=== PATIENT | female | born 1945 | race Caucasian/White ===

== ENCOUNTER 2017-04-18 18:56 | Emergency (ER) | payer SELFPAY ==
[2017-04-18] MEDS ORDERED: Ketorolac INJ* 30 MG/ML 1 ML VIAL IM ONE (20:56)
[2017-04-18] MEDS ORDERED: traMADol TAB* 50 MG PO ONE (20:56)
--- NOTE | 2017-04-18 21:37 | RAD ---
INDICATION: Left hip pain TECHNIQUE: An AP view of the pelvis was obtained. FINDINGS: Advanced degenerative changes of the bilateral hips seen in the AP view include sclerotic change with flattening remodeling of the bilateral femoral heads and exuberant marginal osteophyte formation. The bones are otherwise intact and appropriately aligned. Incidentally noted is a gas-filled sigmoid colon measuring just under 7 mm in diameter. There is a large amount of stool seen in the proximal colon at the cecum and ascending colon. Gas and stool is seen overlying the rectum. IMPRESSION: 1. Advanced degenerative changes of the bilateral hips seen in the AP projection. 2. Incidentally noted is mildly dilated gas-filled sigmoid colon measuring just under 7 mm in diameter with a large amount of stool seen in the colon proximally.
[2017-04-18] MEDS ORDERED: Magnesium CITRATE* 300 ML BTL PO ONE (22:18)
[2017-04-18] MEDS ORDERED: Bisacodyl SUPP* 10 MG SUPP PR ONE (22:19)
--- NOTE | 2017-04-18 22:38 | ED ---
Rey Lutz Nikita, scribed for Fifi Barney MD on 04/18/17 at 2050 . Lower Extremity - HPI Summary HPI Summary: This patient is a 71 year old F presenting to ED with a chief complaint of bilateral hip pain since 3 days ago. The CC is described as R is significantly more painful than the L hip. The patient rates the pain 7/10 in severity. Symptoms aggravated by nothing. Symptoms alleviated by nothing. Patient denies recent injury and abdominal pain. Pt is waiting for a hip replacement (1.5 and 3 years ago; both hips). Pt took Ibuprofen 3 hours ago. - History of Current Complaint Chief Complaint: EDExtremityLower Stated Complaint: LEG/HIP/BACK PAIN Time Seen by Provider: 04/18/17 20:22 Hx Obtained From: Patient, Family/Territory Representative - pt does not speak mongolian; daughter translates for the pt Onset of Pain: Days Onset/Duration: Days Severity Initially: Moderate Severity Currently: Moderate Pain Intensity: 7 Pain Scale Used: 0-10 Numeric Timing: Constant, Lasting Days Location: Is Discrete @ - hips bilaterally Associated Signs And Symptoms: Positive: Other - Patient denies recent injury and abdominal pain. Aggravating Factor(s): Nothing Alleviating Factor(s): Nothing - Allergies/Home Medications Allergies/Adverse Reactions: Allergies Allergy/AdvReac Type Severity Reaction Status Date / Time Fentanyl Allergy Nausea And Verified 04/18/17 19:08 Vomiting Lidocaine Allergy Nausea And Verified 04/18/17 19:08 Vomiting PMH/Surg Hx/FS Hx/Imm Hx Endocrine/Hematology History: Denies: Hx Diabetes Cardiovascular History: Denies: Hx Coronary Artery Disease GI History: Reports: Hx Ulcer Musculoskeletal History: Reports: Hx Arthritis, Other Musculoskeletal History - sciatica Infectious Disease History: No Infectious Disease History: Denies: Traveled Outside the [place] in Last 30 Days - Family History Known Family History: Negative: Cardiac Disease, Hypertension Review of Systems Negative: Abdominal Pain Positive: Other - bilateral hip pain; denies recent injury All Other Systems Reviewed And Are Negative: Yes Physical Exam - Summary Physical Exam Summary: VITAL SIGNS: Reviewed. GENERAL: ~Patient is a well-developed and nourished FEMALE who is lying comfortable in the stretcher. Patient is not in any acute respiratory distress. HEAD AND FACE: No signs of trauma. No ecchymosis, hematomas or skull depressions. No sinus tenderness. EYES: PERRLA, EOMI x 2, No injected conjunctiva, no nystagmus. EARS: Hearing grossly intact. Ear canals and tympanic membranes are within normal limits. MOUTH: Oropharynx within normal limits. NECK: Supple, trachea is midline, no adenopathy, no JVD, no carotid bruit, no c- spine tenderness, neck with full ROM. CHEST: Symmetric, no tenderness at palpation LUNGS: Clear to auscultation bilaterally. No wheezing or crackles. CVS: Regular rate and rhythm, S1 and S2 present, no murmurs or gallops appreciated. ABDOMEN: Soft, non-tender. No signs of distention. No rebound no guarding, and no masses palpated. Bowel sounds are normal. EXTREMITIES: Bilateral hip tenderness, bilateral straight leg raise test is positive at 20 degrees, no edema, no cyanosis or clubbing. NEURO: Alert and oriented x 3. No acute neurological deficits. Speech is normal and follows commands. SKIN: Dry and warm Triage Information Reviewed: Yes Vital Signs On Initial Exam: Initial Vitals Temp Pulse Resp BP Pulse Ox 98.5 F 77 16 150/73 93 04/18/17 19:02 04/18/17 19:02 04/18/17 19:02 04/18/17 19:02 04/18/17 19:02 Vital Signs Reviewed: Yes Diagnostics - Vital Signs Vital Signs Temp Pulse Resp BP Pulse Ox 04/18/17 19:02 98.5 F 77 16 150/73 93 - Laboratory Lab Statement: Any lab studies that have been ordered have been reviewed, and results considered in the medical decision making process. - Radiology Pelvis XR Radiology Interpretation Completed By: Radiologist - 1. Advanced degenerative changes of the bilateral hips seen in the AP projection. 2. Incidentally noted is mildly dilated gas-filled sigmoid colon measuring just under 7 mm in diameter with a large amount of stool seen in the colon proximally. ED physician has reviewed this radiology report. Lower Extremity Course/Dx - Course Assessment/Plan: This patient is a 71 year old F presenting to ED with a chief complaint of bilateral hip pain since 3 days ago. The CC is described as R is significantly more painful than the L hip. Pelvis XR reveals 1. Advanced degenerative changes of the bilateral hips seen in the AP projection. 2. Incidentally noted is mildly dilated gas-filled sigmoid colon measuring just under 7 mm in diameter with a large amount of stool seen in the colon proximally. Pt will be discharged with instructions to follow up with Dr. Mclaughlin. Pt is agreeable with this plan. - Diagnoses Differential Diagnosis/HQI/PQRI: Positive: Other - bilateral hip arthritis, constipation Provider Diagnoses: Constipation, Bilateral hip joint arthritis Discharge - Discharge Plan Condition: Stable Disposition: HOME Prescriptions: traMADol TAB* [Ultram*] 50 mg PO Q6HR PRN #20 tab MDD 4 PRN Reason: Pain Referrals: Zana Mclaughlin MD [Medical Doctor] - (Follow up with Dr. Mclaughlin in 1-2 days.) Additional Instructions: BE SURE TO FOLLOW UP WITH DR. MCLAUGHLIN IN 1-2 DAYS. RETURN TO EMERGENCY DEPARTMENT FOR ANY NEW OR WORSENING SYMPTOMS. The documentation as recorded by the Rey damon Nikita accurately reflects the service I personally performed and the decisions made by , Fifi Barney MD.
[2017-04-18 22:54] VITALS: BP 136/89
== END 2017-04-18 22:53 | disposition home or self-care (01) ==
LOC: ED 18:56
DX: K59.00 Constipation, unspecified (principal); M16.0 Bilateral primary osteoarthritis of hip; M25.552 Pain in left hip; M25.551 Pain in right hip; Z87.11 Personal history of peptic ulcer disease
CPT/HCPCS: 72170; 96372; 99282; A9270-GY; J1885

== ENCOUNTER 2019-03-31 15:39 | Emergency (ER) | payer MEDICAID ==
[2019-03-31 16:00] VITALS: BP 139/78
--- NOTE | 2019-03-31 16:02 | UC ---
Skin Complaint HPI - HPI Summary HPI Summary: Patient is a 73yo female presenting with daughter for "itchy scalp and skin" x2 weeks. History obtained by daughter, as the patient speak little pashto. Daughter states that her mother has "possible bed bugs, fleas, or insect infestation." States that itching is worse at night and that she is unable to sleep. Denies current itching. Denies visible rash or bites. Daughter states she believes she has seen fleas in the apartment but has not seen any bed bugs. Patient states she believes she has seen "dark spots" in her hair as well. States they have tried contacting landlord but that he will not get back to them. They have tried flea bombs last week, bed bug sprays, and lice shampoo yesterday. Denies having any pets. - History of Current Complaint Stated Complaint: SCALP, SKIN IRRITATION Hx Obtained From: Patient, Family/Resident Care Supervisor - daughter Hx Last Menstrual Period: post Pain Intensity: 0 - Allergy/Home Medications Allergies/Adverse Reactions: Allergies Allergy/AdvReac Type Severity Reaction Status Date / Time fentanyl Allergy Severe n/v Verified 03/31/19 16:02 lidocaine Allergy Severe n/v Verified 03/31/19 16:02 Home Medications: Home Medications Lisinopril TAB* [Prinivil TAB 5 MG*] 1 tab PO DAILY 03/31/19 [History Confirmed 03/31/19] Omeprazole 1 tab PO DAILY 03/31/19 [History Confirmed 03/31/19] PMH/Surg Hx/FS Hx/Imm Hx Cardiovascular History: Hypertension GI/ History: Gastroesophageal Reflux - Surgical History Surgical History: None - Family History Known Family History: Negative: Cardiac Disease, Hypertension - Social History Occupation: Retired Lives: Alone Alcohol Use: None Substance Use Type: None Smoking Status (MU): Never Smoked Tobacco Review of Systems All Other Systems Reviewed And Are Negative: No Constitutional: Positive: Negative Skin: Positive: Other - pruritic scalp and skin head to toe intermittently. Negative: Rash Respiratory: Positive: Negative Cardiovascular: Positive: Negative Gastrointestinal: Positive: Negative Musculoskeletal: Positive: Negative Neurological: Positive: Negative Physical Exam Triage Information Reviewed: Yes Appearance: Well-Appearing, No Pain Distress, Well-Nourished Vital Signs: Initial Vital Signs Temp 98 F 03/31/19 15:55 Pulse 79 03/31/19 15:55 Resp 18 03/31/19 15:55 BP 139/78 03/31/19 15:55 Pulse Ox 99 03/31/19 15:55 Vital Signs Reviewed: Yes Eyes: Positive: Conjunctiva Clear ENT: Positive: Hearing grossly normal Neck: Positive: Supple Respiratory Exam: Normal Respiratory: Positive: Lungs clear, Normal breath sounds, No respiratory distress Cardiovascular Exam: Normal Cardiovascular: Positive: RRR Neurological: Positive: Alert Psychological: Positive: Age Appropriate Behavior Skin Exam: Normal, Other - no rashes, bite spaulding, or lesions noted on skin exam. scalp without evidence of lice or nits. Skin: Negative: Rashes, Significant Lesion(s) Course/Dx - Course Course Of Treatment: I treated patient with permethrin 5% for treatment of possible lice or scabies exposure. Instructed patient to follow up with dermatology referral if symptoms persist. Patient and daughter were given [facility] contact information after expressing concern that the landlord will not communicate with them on this matter. Patient and daughter voiced understanding and agreed with treatment plan. - Differential Diagnoses - Skin Complaint Differential Diagnoses: Head Lice, Scabies - Diagnoses Provider Diagnosis: Pruritus of skin, Pruritus of scalp Discharge ED - Sign-Out/Discharge Documenting (check all that apply): Patient Departure All imaging exams completed and their final reports reviewed: No Studies - Discharge Plan Condition: Stable Disposition: HOME Prescriptions: Permethrin [Elimite] 5 % EX SEE INSTRUCTIONS #1 cre Patient Education Materials: Itchy Skin (ED) Referrals: Becky Rolle MD [Primary Care Provider] - Curtis Steward MD [Medical Doctor] - If Needed Additional Instructions: Apply the Elimite cream from head to soles of feet, including scalp, forehead, and neck. Leave it on for 8-14 hours and remove with water. If symptoms persist, follow up with the dermatology referral listed below for further evaluation. It is recommended that you contact your landlord or the housing authorities to have your apartment inspected for any infestation. - Billing Disposition and Condition Condition: STABLE Disposition: Home
== END 2019-03-31 16:38 | disposition home or self-care (01) ==
LOC: UCEAST 15:39
DX: L29.9 Pruritus, unspecified (principal); I10 Essential (primary) hypertension; K21.9 Gastro-esophageal reflux disease without esophagitis; Z88.5 Allergy status to narcotic agent; Z88.4 Allergy status to anesthetic agent; Z79.899 Other long term (current) drug therapy
CPT/HCPCS: 99212; G0463

== ENCOUNTER 2019-04-25 21:00 | Inpatient (IN) | payer MEDICAID ==
[2019-04-25] MEDS ORDERED: Diltiazem IV push/loading dose 5 MG/ML 5 ML vial (25 mg) IV SLOW PU ONE (21:49)
[2019-04-25 22:00] LABS: Hematocrit 38 % (35-47); Hemoglobin 12.4 g/dL (12.0-16.0); Mean Corpuscular HGB Conc 33 g/dL (31-36); Mean Corpuscular Hemoglobin 30 pg (27-31); Mean Corpuscular Volume 90 fL (80-97); Mean Platelet Volume 11.8 fL (7.4-10.4); Platelet Count 151 10^3/uL (150-450); Red Blood Count 4.18 10^6 /uL (3.70-4.87); Red Cell Distribution Width 14 % (10-15); White Blood Count 11.1 10^3/uL (3.5-10.8)
[2019-04-25] MEDS: Diltiazem IV BAG* D5W Premix 125 MG/125 ML BAG IV ONE ×2 (22:10→23:24)
[2019-04-25 22:17] LABS: Albumin/Globulin Ratio 1.3 (1-3); BUN/Creatinine Ratio 21.1 (8-20); Calcium 9.5 mg/dL (8.6-10.3); EGFR African American 74.5 (>60); EGFR Non-African American 61.5 (>60); Potassium 3.3 mmol/L (3.5-5.0); Total Bilirubin 0.5 mg/dL (0.2-1.0)
[2019-04-25 22:18] LABS: Troponin I 0.01 ng/mL (<0.03)
--- NOTE | 2019-04-25 22:25 | ED ---
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 She states that her home has fleas and bugs that have created a stressful and uncomfortable environment for her over the past few weeks. She spoke to her landlord about the pest issue but they could not find evidence of an infestation. She rates her current pain severity a 2/10. No aggravating or alleviating factors noted. She also reports feeling week and being unable to get out of bed. She has Hx of tachycardia. - History Of Current Complaint Chief Complaint: EDChestWallPain Time Seen by Provider: 04/25/19 21:31 Hx Obtained From: Patient, Family/Sound Controller - son Onset/Duration: Sudden Onset, Lasting Hours, Still Present Timing: Constant, Hours Severity Currently: Mild Severity Initially: Mild Aggravating Factor(s): nothing Alleviating Factor(s): nothing Associated Signs And Symptoms: Positive: Weakness, Other - pos - hypotension - Allergies/Home Medications Allergies/Adverse Reactions: Allergies Allergy/AdvReac Type Severity Reaction Status Date / Time fentanyl Allergy Severe n/v Verified 04/25/19 21:02 lidocaine Allergy Severe n/v Verified 04/25/19 21:02 PMH/Surg Hx/FS Hx/Imm Hx Endocrine/Hematology History: Denies: Hx Diabetes Cardiovascular History: Reports: Hx Hypertension Denies: Hx Coronary Artery Disease GI History: Reports: Hx Ulcer Musculoskeletal History: Reports: Hx Arthritis, Other Musculoskeletal History - sciatica - Surgical History Surgical History: None Surgery Procedure, Year, and Place: none Infectious Disease History: No Infectious Disease History: Denies: Traveled Outside the [place] in Last 30 Days - Family History Known Family History: Negative: Cardiac Disease, Hypertension - Social History Alcohol Use: None Substance Use Type: Reports: None Smoking Status (MU): Never Smoked Tobacco Review of Systems Cardiovascular: Other - pos - hypotension Positive: Weakness All Other Systems Reviewed And Are Negative: Yes Physical Exam - Summary Physical Exam Summary: Appearance: Well-appearing, Well-nourished, lying in bed comfortably Skin: Warm, dry, no obvious rash Eyes: sclera anicteric, no conjunctival pallor ENT: mucous membranes moist, pharynx appears normal Neck: Supple, nontender Respiratory: Clear to auscultation, no signs of respiratory distress Cardiovascular: HR is rapid (130s range) and irregularly irregular, Normal S1, S2. No murmurs. Normal distal pulses in tibial and radial bilaterally. Abdomen: Soft, nontender, normal active bowel sounds present Musculoskeletal: Normal, Strength/ROM Intact Neurological: A&Ox3, awake and alert, mentation is normal, speech is fluent and appropriate Psychiatric: affect is normal, does not appear anxious or depressed Triage Information Reviewed: Yes Vital Signs On Initial Exam: Initial Vitals Temp Pulse Resp BP Pulse Ox 97.5 F 112 18 87/65 98 04/25/19 21:02 04/25/19 21:02 04/25/19 21:02 04/25/19 21:02 04/25/19 21:02 Vital Signs Reviewed: Yes Procedures - Sedation Patient Received Moderate/Deep Sedation with Procedure: No Diagnostics - Vital Signs Vital Signs Temp Pulse Resp BP Pulse Ox 04/25/19 21:41 95 18 114/79 94 04/25/19 21:02 97.5 F 112 18 87/65 98 - Laboratory Lab Results: Lab Results 04/25/19 04/25/19 04/25/19 Range/Units 21:48 21:48 21:48 WBC 11.1 H (3.5-10.8) 10^3/uL RBC 4.18 (3.70-4.87) 10^6 /uL Hgb 12.4 (12.0-16.0) g/dL Hct 38 (35-47) % MCV 90 (80-97) fL MCH 30 (27-31) pg MCHC 33 (31-36) g/dL RDW 14 (10-15) % Plt Count 151 (150-450) 10^3/uL MPV 11.8 H (7.4-10.4) fL Neut % (Auto) Pending Lymph % (Auto) Pending [place] % (Auto) Pending Eos % (Auto) Pending Baso % (Auto) Pending Absolute Neuts (auto) Pending Absolute Lymphs (auto) Pending Absolute Monos (auto) Pending Absolute Eos (auto) Pending Absolute Basos (auto) Pending Absolute Nucleated RBC Pending Nucleated RBC % Pending INR (Anticoag Therapy) 1.00 (0.82-1.09) Sodium 140 (135-145) mmol/L Potassium 3.3 L (3.5-5.0) mmol/L Chloride 108 (101-111) mmol/L Carbon Dioxide 21 L (22-32) mmol/L Anion Gap 11 (2-11) mmol/L BUN 19 (6-24) mg/dL Creatinine 0.90 (0.51-0.95) mg/dL Est GFR ( Amer) 74.5 (>60) Est GFR (Non-Af Amer) 61.5 (>60) BUN/Creatinine Ratio 21.1 H (8-20) Glucose 109 H (70-100) mg/dL Calcium 9.5 (8.6-10.3) mg/dL Total Bilirubin 0.50 (0.2-1.0) mg/dL AST 17 (13-39) U/L ALT 7 (7-52) U/L Alkaline Phosphatase 68 (34-104) U/L Troponin I 0.01 (<0.03) ng/mL Total Protein 7.0 (6.4-8.9) g/dL Albumin 4.0 (3.2-5.2) g/dL Globulin 3.0 (2-4) g/dL Albumin/Globulin Ratio 1.3 (1-3) Result Diagrams: 04/26/19 05:00 04/25/19 21:48 Lab Statement: Any lab studies that have been ordered have been reviewed, and results considered in the medical decision making process. - EKG 2111 Cardiac Rate: Other Rate - Afib @ 140 bpm EKG Rhythm: Atrial Fibrillation Summary of EKG Findings: EKG @ 2111 reveals Afib @ 140 bpm. No STEMI. 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 She states that her home has fleas and bugs that have created a stressful and uncomfortable environment for her over the past few weeks. Lab results normal except for WBC 11.1, MPV 11.8, Absolute Neuts 9.2, Potassium 3.3, CO2 21, BUN/Creatinine 21.1, Glucose 109. EKG @ 2111 reveals Afib @ 140 bpm. No STEMI. Final Dx is Afib with rapid ventricular response. Dr. Schneider will admit the pt to [facility] [place]. Pt is agreeable with this plan. - Diagnoses Provider Diagnoses: Atrial fibrillation with rapid ventricular response - Physician Notifications Discussed Care Of Patient With: Korina Schneider - Dr. Schneider will admit the pt to [facility] [place]. Time Discussed With Above Provider: 22:30 Instructed by Provider To: Admit As Inpatient - Critical Care Time Critical Care Time: 30-74 min Discharge ED - Sign-Out/Discharge Documenting (check all that apply): Patient Departure - admit - Discharge Plan Condition: Stable Disposition: ADMITTED TO [facility] - Billing Disposition and Condition Condition: STABLE Disposition: Admitted to [facility] - Attestation Statements Document Initiated by Liyah: Yes Documenting Scribe: Lloyd Anna Provider For Whom Liyah is Documenting (Include Credential): Kwan Rondon MD Scribe Attestation: Lloyd Lutz, scribed for Kwan Rondon MD on 04/26/19 at 0505. Scribe Documentation Reviewed: Yes Provider Attestation: The documentation as recorded by the Lloyd damon accurately reflects the service I personally performed and the decisions made by , Kwan Rondon MD Status of Scribe Document: Viewed
[2019-04-25 22:35] LABS: ABS Lymphocytes 1.1 10^3/ul (1.0-4.8); ABS Monocytes 0.8 10^3/ul (0-0.8); ABS Neutrophils 9.2 10^3/ul (1.5-7.7); Eosinophil % 0.2 %; Large Platelets Present; Lymphocyte % 9.8 %
[2019-04-26] MEDS: Diltiazem IV BAG* D5W Premix 125 MG/125 ML BAG IV ONE (00:12)
[2019-04-26 00:41] LABS: HDL Cholesterol 58.3 mg/dL; Magnesium 2.2 mg/dL (1.9-2.7)
[2019-04-26 00:43] LABS: Troponin I 0.02 ng/mL (<0.03)
[2019-04-26] MEDS: NS 0.9% 1000 ML** 1,000 ML IV SCH ×3 (01:34→20:59)
[2019-04-26] MEDS: KCL 10 MEQ/50 ML IVPREMIX* 10 MEQ/50 ML BAG IV SCH ×4 (01:34→14:02)
[2019-04-26 03:18] LABS: Hematocrit 36 % (35-47); Hemoglobin 12.1 g/dL (12.0-16.0); Mean Corpuscular HGB Conc 33 g/dL (31-36); Mean Corpuscular Hemoglobin 30 pg (27-31); Mean Corpuscular Volume 89 fL (80-97); Mean Platelet Volume 12.5 fL (7.4-10.4); Platelet Count 146 10^3/uL (150-450); Red Blood Count 4.05 10^6 /uL (3.70-4.87); Red Cell Distribution Width 14 % (10-15); White Blood Count 7.9 10^3/uL (3.5-10.8)
[2019-04-26 03:37] LABS: Troponin I 0.03 ng/mL (<0.03)
--- NOTE | 2019-04-26 06:57 | ADMNOTE ---
Subjective Interval History: this is my H/P 73 yo female with hx of HTN presented to the ED after an episode of lightheadedness. She was brought in with MassielN and Afib with RVR by EMT. She is thai, hx is limited. Her daughter was in the room serving as disease and insect control boss. Her daughter was spending most of the day iwth her and thought she was at her usual self before it happened. No prior hx of heart disease. Pt placed on cardizem drip. Family History: Unchanged from Admission Social History: Unchanged from Admission Past Medical History: Unchanged from Admission Review of Systems - Measurements Intake and Output: Intake and Output Last 24 Hours 04/23/19 04/24/19 04/25/19 04/26/19 06:59 06:59 06:59 06:59 Intake Total 503 Balance 503 Weight 145 lb 4.554 oz Intake: IV Fluids 353 NS (0.9%) 353 IVPB 115 potassium 115 Medicated IV 35 GEN - Diltiazem/Cardizem 35 Oral 0 Other: Estimated Void Medium # Voids 1 - Review of Systems Constitutional Symptoms: Negative: Weight Gain, Weight Loss, Weakness, Fatigue, Fever, Night Sweats, Unexplained Falls, Other Dermatology: Negative: Normal, Rash, Skin Lesions, Cancer, Skin Lumps, Other HEENT: Negative: Normal, Change in Hearing, Vertigo, Dental Problems, Tinnitus, Sinus Problem, Other Eyes: Negative: Normal, Change in Vision, Double Vision, Eye Pain, Glaucoma, Cataract, Contacts or Glasses, Other Thyroid: Negative: Normal, Goiter, Thyroid Nodule, Cold Intolerance, Heat Intolerance , Sweatiness, Tremor, Frequent Defecation, Constipation, Palpitations, Primary Hypothyroidism, Primary Hyperthyroidism, Weight Loss, Weight Gain, Change in Skin/Hair, Change in Menstruation, Radiation Exposure, Other Pulmonary: Negative: Normal, Cough, Sputum, Hemoptysis, Wheezing, Respiratory Distress, Shortness of Breath, COPD, Asthma, Exercise Intolerance, Home Oxygen, Other Cardiology: Negative: Normal, Chest Pain, Shortness of Breath, Palpitations, Swelling of Ankles, Peripheral Vascular Dis, Edema, Faintness, Syncope, Claudication, Proximal NocturnalDyspnea, Orthopnoea, Other Gastroenterology: Negative: Normal, Abdominal Pain, Nausea, Vomiting, Anorexia, Indigestion, Difficulty Swallowing, Heartburn, Constipation, Diarrhea, Blood in Stools, Change in Bowel Habits, Haematemesis, Melena, Other Musculoskeletal: Negative: Joint Pain, Joint Stiffness, Arthritis, Osteoporosis, Low Back Pain , Sciatica, Joint Deformities, Kyphoscoliosis, Other Endocrinology: Negative: Normal, Thyroid Problems, Adrenal Problems, Gonadal Problems, Family Hx Endocrine Disorders, Obesity, Diabetes Mellitus, Hyperglycemia, Hx Hypoglycemia, Diabetic Foot Ulcers, Calluses, Hirsutism, Menstrual Abnormalities , Polydipsia, Polyuria, Gonadal Problems, Gynecomastia, Pituitary disease, Other Hematologic/Lymphatic: Negative: Anemia, Easy Bruising, Hx Leukemia, Hx Lymphoma, Use of Anticoagulant, Use of Antiplatelet Drugs, Other Neurology: Negative: Normal, Headache, Migraines, Change in Vision, Diplopia, Dizziness , Change in Balancing, Change in Coordination, Change in Memory, Change in Speech, Change in Sphincter Function, Change in Walking, Numbness\Paresthesiae, Unexplained Weakness, Hx of Stroke\TIA, Hx of Seizures, Other Psychiatry: Positive: Anxiety Negative: Normal, Depression, Depressed Mood, Anhedonia, Sexual Dysfunction, Weight Change, Guilt Feelings, Tearfulness, Unusual Fatigue, Unusual Anxiety, Suicidal Ideation, Hypomania, Eating Disorders, Other Allergic/Immunologic: Negative: Hx Anaphylaxis, Hx Angioedema, Hx Environmental, Hx Seasonal, Asthma, Hx HIV, Immunocompromise, Swollen Glands LymphNodes, Other Objective Active Medications: Diltiazem/Dextrose (Cardizem Iv D5w Bag* Premix) 125 mg in 125 mls @ 5 mls/hr IV ED ONCE ONE; Protocol Stop: 04/26/19 22:49 Last Admin: 04/26/19 00:12 Dose: 15 mls/hr Sodium Chloride (Ns 0.9% 1000 Ml) 1,000 mls @ 125 mls/hr IV PER RATE [facility] Last Admin: 04/26/19 01:34 Dose: 125 mls/hr Lisinopril (Prinivil Tab*) 5 mg PO DAILY [facility] Pantoprazole Sodium (Protonix Tab*) 40 mg PO DAILY [facility] Ambulatory Orders Lisinopril TAB* [Prinivil TAB 5 MG*] 1 tab PO DAILY 03/31/19 Omeprazole 1 tab PO DAILY 03/31/19 Vital Signs - 8 hr 04/25/19 04/25/19 04/25/19 23:00 23:14 23:26 Temperature Pulse Rate 102 115 100 Respiratory 17 17 20 Rate Blood Pressure 110/80 114/87 (mmHg) O2 Sat by Pulse 97 97 94 Oximetry 04/25/19 04/25/19 04/26/19 23:52 23:56 00:00 Temperature Pulse Rate 114 119 102 Respiratory 21 21 20 Rate Blood Pressure 108/89 126/77 (mmHg) O2 Sat by Pulse 98 98 96 Oximetry 04/26/19 04/26/19 04/26/19 00:06 00:11 00:16 Temperature Pulse Rate 108 118 107 Respiratory 17 14 18 Rate Blood Pressure 121/84 101/87 (mmHg) O2 Sat by Pulse 97 96 94 Oximetry 04/26/19 04/26/19 04/26/19 00:26 00:36 00:46 Temperature Pulse Rate 117 125 125 Respiratory 17 16 16 Rate Blood Pressure 111/84 131/69 138/91 (mmHg) O2 Sat by Pulse 95 94 95 Oximetry 04/26/19 04/26/19 04/26/19 00:56 01:00 01:15 Temperature 98.8 F 97.7 F Pulse Rate 105 124 124 Respiratory 15 17 16 Rate Blood Pressure 112/86 121/84 103/69 (mmHg) O2 Sat by Pulse 96 96 94 Oximetry 04/26/19 04/26/19 04/26/19 01:21 01:30 01:45 Temperature Pulse Rate 109 118 108 Respiratory 22 18 15 Rate Blood Pressure 98/70 106/83 103/69 (mmHg) O2 Sat by Pulse 92 93 93 Oximetry 04/26/19 04/26/19 04/26/19 02:00 02:15 02:16 Temperature Pulse Rate 112 98 92 Respiratory 15 15 17 Rate Blood Pressure 93/72 88/63 101/74 (mmHg) O2 Sat by Pulse 94 92 93 Oximetry 04/26/19 04/26/19 04/26/19 02:30 02:45 03:00 Temperature Pulse Rate 118 93 97 Respiratory 18 20 14 Rate Blood Pressure 115/87 106/73 114/61 (mmHg) O2 Sat by Pulse 91 91 93 Oximetry 04/26/19 04/26/19 04/26/19 03:17 03:20 03:30 Temperature Pulse Rate 106 98 89 Respiratory 17 18 15 Rate Blood Pressure 104/70 104/70 91/78 (mmHg) O2 Sat by Pulse 92 92 95 Oximetry 04/26/19 04/26/19 04/26/19 03:45 04:00 04:15 Temperature Pulse Rate 122 60 59 Respiratory 17 17 18 Rate Blood Pressure 106/78 113/67 112/64 (mmHg) O2 Sat by Pulse 92 92 93 Oximetry 04/26/19 04/26/19 04/26/19 04:30 04:45 05:00 Temperature Pulse Rate 62 58 Respiratory 17 21 22 Rate Blood Pressure 117/70 111/62 107/58 (mmHg) O2 Sat by Pulse 95 95 Oximetry 04/26/19 04/26/19 04/26/19 05:15 05:30 05:45 Temperature Pulse Rate 55 59 58 Respiratory 19 17 18 Rate Blood Pressure 119/62 102/61 (mmHg) O2 Sat by Pulse 98 95 96 Oximetry 04/26/19 04/26/19 04/26/19 05:46 05:55 06:00 Temperature Pulse Rate 62 65 Respiratory 19 21 19 Rate Blood Pressure 120/64 120/59 (mmHg) O2 Sat by Pulse 93 95 Oximetry Oxygen Devices in Use Now: None Appearance: well groomed, pleasant Eyes: No Scleral Icterus, PERRLA Ears/Nose/Mouth/Throat: NL Teeth, Lips, Gums, Mucous Membranes Moist Neck: NL Appearance and Movements; NL JVP, Trachea Midline Respiratory: Symmetrical Chest Expansion and Respiratory Effort, Clear to Auscultation Cardiovascular: NL Sounds; No Murmurs; No JVD, No Edema Abdominal: NL Sounds; No Tenderness; No Distention Lymphatic: No Cervical Adenopathy Skin: No Rash or Ulcers, No Nodules or Sclerosis Neurological: Alert and Oriented x 3, NL Muscle Strength and Tone Result Diagrams: 04/26/19 05:00 04/25/19 21:48 Additional Lab and Data: Lab Results 04/25/19 04/25/19 04/25/19 Range/Units 21:48 21:48 21:48 WBC 11.1 H (3.5-10.8) 10^3/uL RBC 4.18 (3.70-4.87) 10^6 /uL Hgb 12.4 (12.0-16.0) g/dL Hct 38 (35-47) % MCV 90 (80-97) fL MCH 30 (27-31) pg MCHC 33 (31-36) g/dL RDW 14 (10-15) % Plt Count 151 (150-450) 10^3/uL MPV 11.8 H (7.4-10.4) fL Neut % (Auto) Pending Lymph % (Auto) Pending Ida % (Auto) Pending Eos % (Auto) Pending Baso % (Auto) Pending Absolute Neuts (auto) Pending Absolute Lymphs (auto) Pending Absolute Monos (auto) Pending Absolute Eos (auto) Pending Absolute Basos (auto) Pending Absolute Nucleated RBC Pending Nucleated RBC % Pending INR (Anticoag Therapy) 1.00 (0.82-1.09) Sodium 140 (135-145) mmol/L Potassium 3.3 L (3.5-5.0) mmol/L Chloride 108 (101-111) mmol/L Carbon Dioxide 21 L (22-32) mmol/L Anion Gap 11 (2-11) mmol/L BUN 19 (6-24) mg/dL Creatinine 0.90 (0.51-0.95) mg/dL Est GFR ( Amer) 74.5 (>60) Est GFR (Non-Af Amer) 61.5 (>60) BUN/Creatinine Ratio 21.1 H (8-20) Glucose 109 H (70-100) mg/dL Calcium 9.5 (8.6-10.3) mg/dL Total Bilirubin 0.50 (0.2-1.0) mg/dL AST 17 (13-39) U/L ALT 7 (7-52) U/L Alkaline Phosphatase 68 (34-104) U/L Troponin I 0.01 (<0.03) ng/mL Total Protein 7.0 (6.4-8.9) g/dL Albumin 4.0 (3.2-5.2) g/dL Globulin 3.0 (2-4) g/dL Albumin/Globulin Ratio 1.3 (1-3) Microbiology and Other Data: Microbiology 04/26/19 01:31 Nasal Screen MRSA (PCR) - Final Nasal Mrsa Not Detected Assess/Plan/Problems-Billing Assessment: - Patient Problems (1) Atrial fibrillation with RVR Current Visit: Yes Status: Acute Code(s): I48.91 - UNSPECIFIED ATRIAL FIBRILLATION SNOMED Code(s): 465215477591425 Comment: new onset Afib, placed on cardizem drip in the ED TSH is normal no prior hx of heart disease TTE (2) HTN (hypertension) Current Visit: Yes Status: Acute Code(s): I10 - ESSENTIAL (PRIMARY) HYPERTENSION SNOMED Code(s): 91667909 Comment: cont home meds (3) DVT prophylaxis Current Visit: Yes Status: Acute Code(s): Z29.9 - ENCOUNTER FOR PROPHYLACTIC MEASURES, UNSPECIFIED SNOMED Code(s): 156553775 Comment: heparin scc (4) Full code status Current Visit: Yes Status: Acute Code(s): Z78.9 - OTHER SPECIFIED HEALTH STATUS SNOMED Code(s): 084284007 Comment: daughter is HCP
[2019-04-26] MEDS: Lisinopril TAB* 5 MG PO SCH (10:12)
[2019-04-26] MEDS: Pantoprazole TAB * 40 MG TAB PO SCH (10:29)
--- NOTE | 2019-04-26 12:30 | PN ---
Progress Note - Progress Note Date of Service: 04/26/19 Note: Admission Progress Note: Patient seen and examined. Off cardizem since 0347 this morning. Admission note reviewed. BP soft overnight, remains on IV fluids. Asymptomatic. Denies chest pain, no SOB, no palpitations. Daughter at bedside for translation. Daughter and patient expressed concerns over some social issues at her apartment prior to events, fears about exposure to flea infestation and chemicals that may have contributed to her arrhythmia. Explained that we could refer to SW for referral and assistance upon discharge. Continue to hold lisinopril, ECHO pending. Stable for transfer to telemetry.
[2019-04-27] MEDS: NS 0.9% 1000 ML** 1,000 ML IV SCH (06:44)
[2019-04-27 08:09] LABS: BUN/Creatinine Ratio 17.9 (8-20); Calcium 8.3 mg/dL (8.6-10.3); EGFR African American 128.8 (>60); EGFR Non-African American 106.4 (>60); Magnesium 1.9 mg/dL (1.9-2.7); Potassium 3.9 mmol/L (3.5-5.0)
[2019-04-27 08:26] VITALS: BP 121/60
[2019-04-27] MEDS ORDERED: Influenza VAC *QUAD* 2019-20* 0.5 ML SYRINGE IM ONE (09:00)
[2019-04-27] MEDS ORDERED: Pneumococcal *Vac Polyvalent 0.5 ML VIAL IM ONE (09:00)
[2019-04-27] MEDS ORDERED: Magnesium Hydroxide LIQ* 30 ML UDC PO PRN (09:18)
--- NOTE | 2019-04-27 09:20 | PN ---
Subjective Date of Service: 04/27/19 Interval History: Transferred out of ICU yesterday. Admitted there with afib with RVR, new diagnosis. Pt converted after dilt and was not started on rate control, as she was intermittently bradycardic. She was not started on AC yet. Pt reports feeling well this morning, interesting in returning home. Extensively discussed risks/benefits of anticoagulation, and pt is willing to start on AC. She is most concerned about bugs found in her alf community - RN consulted SW to open outpatient investigations. Objective Active Medications: Sodium Chloride (Ns 0.9% 1000 Ml) 1,000 mls @ 125 mls/hr IV PER RATE [facility] Last Admin: 04/27/19 06:44 Dose: 125 mls/hr Lisinopril (Prinivil Tab*) 5 mg PO DAILY [facility] Last Admin: 04/26/19 10:12 Dose: Not Given Pantoprazole Sodium (Protonix Tab*) 40 mg PO DAILY [facility] Last Admin: 04/26/19 10:29 Dose: 40 mg Vital Signs - 8 hr 04/27/19 04/27/19 02:52 08:08 Temperature 97.9 F 98 F Pulse Rate 70 62 Respiratory 16 17 Rate Blood Pressure 106/57 121/60 (mmHg) O2 Sat by Pulse 97 96 Oximetry Oxygen Devices in Use Now: None Appearance: well appearing woman in NAD, alert and interactive Eyes: No Scleral Icterus Ears/Nose/Mouth/Throat: Clear Oropharnyx, Mucous Membranes Moist Neck: NL Appearance and Movements; NL JVP, Trachea Midline Respiratory: Symmetrical Chest Expansion and Respiratory Effort, Clear to Auscultation Cardiovascular: NL Sounds; No Murmurs; No JVD, RRR Abdominal: NL Sounds; No Tenderness; No Distention, No Hepatosplenomegaly Extremities: No Edema Skin: No Rash or Ulcers Result Diagrams: 04/26/19 05:00 04/27/19 07:13 Additional Lab and Data: Lab Results 04/25/19 04/25/19 04/25/19 Range/Units 21:48 21:48 21:48 WBC 11.1 H (3.5-10.8) 10^3/uL RBC 4.18 (3.70-4.87) 10^6 /uL Hgb 12.4 (12.0-16.0) g/dL Hct 38 (35-47) % MCV 90 (80-97) fL MCH 30 (27-31) pg MCHC 33 (31-36) g/dL RDW 14 (10-15) % Plt Count 151 (150-450) 10^3/uL MPV 11.8 H (7.4-10.4) fL Neut % (Auto) Pending Lymph % (Auto) Pending [place] % (Auto) Pending Eos % (Auto) Pending Baso % (Auto) Pending Absolute Neuts (auto) Pending Absolute Lymphs (auto) Pending Absolute Monos (auto) Pending Absolute Eos (auto) Pending Absolute Basos (auto) Pending Absolute Nucleated RBC Pending Nucleated RBC % Pending INR (Anticoag Therapy) 1.00 (0.82-1.09) Sodium 140 (135-145) mmol/L Potassium 3.3 L (3.5-5.0) mmol/L Chloride 108 (101-111) mmol/L Carbon Dioxide 21 L (22-32) mmol/L Anion Gap 11 (2-11) mmol/L BUN 19 (6-24) mg/dL Creatinine 0.90 (0.51-0.95) mg/dL Est GFR ( Amer) 74.5 (>60) Est GFR (Non-Af Amer) 61.5 (>60) BUN/Creatinine Ratio 21.1 H (8-20) Glucose 109 H (70-100) mg/dL Calcium 9.5 (8.6-10.3) mg/dL Total Bilirubin 0.50 (0.2-1.0) mg/dL AST 17 (13-39) U/L ALT 7 (7-52) U/L Alkaline Phosphatase 68 (34-104) U/L Troponin I 0.01 (<0.03) ng/mL Total Protein 7.0 (6.4-8.9) g/dL Albumin 4.0 (3.2-5.2) g/dL Globulin 3.0 (2-4) g/dL Albumin/Globulin Ratio 1.3 (1-3) Microbiology and Other Data: Microbiology 04/26/19 01:31 Nasal Screen MRSA (PCR) - Final Nasal Mrsa Not Detected Assess/Plan/Problems-Billing Assessment: 73W with HTN presents with afib and RVR, converted with dilt drip and not started on rate control due to low heart rate. CHADSVASc score is 3, and pt is amenable to starting anticoagulation. SW has opened case with APS to investigate issue of lice in her alf community housing.
[2019-04-27] MEDS: Lisinopril TAB* 5 MG PO SCH (11:12)
[2019-04-27] MEDS: Pantoprazole TAB * 40 MG TAB PO SCH (11:12)
--- NOTE | 2019-04-27 14:47 | ECHO ---
*[facility]* [place] [address] Fax #: [phone] Transthoracic Echocardiogram Patient: Mirlande Almonte : 1945 Study Date: 04/27/2019 Age: 73 Gender: F HR: 64 bpm Height: 61 in /154.9 cm BSA: 1.65 m^2 Weight: 144.7 lb /65.8 kg BMI: 27.4 kg/m^2 *Coin Machine Supervisor: * Diamante Rogers [facility] *Referring Physician: * Korina Schneider *Reading Physician: * Sonia Polanco MD Indications: Atrial Fibrillation. History: Risk factors: Hypertension. Conclusions Summary: - Left ventricle: Systolic function is normal. The estimated ejection fraction is 55-60%. Left ventricular diastolic function parameters are normal. - Right ventricle: Systolic function is normal. - Left atrium: The atrium is at the upper limits of normal in size. - Mitral valve: The Mitral valve annulus appears calcified. The leaflets are mildly thickened. There is mild to moderate regurgitation. - Aortic valve: There is trace regurgitation. - Tricuspid valve: There is trace to mild regurgitation. - Pulmonary arteries: Systolic pressure is within the normal range. - No prior echocardiogram to compare. Study data: Transthoracic echocardiogram. Procedure: Transthoracic echocardiography was performed. Image quality was fair. Complete 2D, spectral Doppler, and color flow Doppler. Location: Bedside. Patient status: Inpatient. Patient room number: 444 01. Rhythm: Normal sinus rhythm. Findings Left ventricle: The cavity size is normal. Wall thickness is mildly increased. Systolic function is normal. The estimated ejection fraction is 55-60%. Wall motion is normal; there are no regional wall motion abnormalities. Left ventricular diastolic function parameters are normal. Right ventricle: The cavity size is normal. Systolic function is normal. Left atrium: The atrium is at the upper limits of normal in size. Right atrium: The atrium is normal in size. Mitral valve: The Mitral valve annulus appears calcified. The leaflets are mildly thickened. There is no evidence of stenosis. There is mild to moderate regurgitation. Aortic valve: The valve is trileaflet. The leaflets are normal thickness. There is no evidence of stenosis. There is trace regurgitation. Tricuspid valve: The leaflets are normal thickness. There is no evidence of stenosis. There is trace to mild regurgitation. Pulmonic valve: The leaflets are normal thickness. There is no evidence of stenosis. There is no significant regurgitation. Aorta: The aortic root appears normal. The aortic arch appears normal. Pericardium: There is no significant pericardial effusion. Pulmonary arteries: Systolic pressure is within the normal range. Systemic veins: Inferior vena cava: The vessel is normal in size. There is (< 50%) respiratory change in the IVC dimension. Measurements Left ventricle Value Ref Mitral valve continued Value Ref PRISCA, LAX 4.4 cm 3.8 - 5.2 Peak A 0.64 m/sec ----- ESD, LAX 2.9 cm 2.2 - 3.5 Decel time 169 ms ----- FS, LAX 34 % 27 - 45 PHT 87 ms ----- PW, ED, LAX 0.9 cm 0.6 - 0.9 Mean grad, D 2.0 mm Hg ----- E', lat [place], TDI (L) 9.5 cm/sec >=10.0 Peak grad, D 5.0 mm Hg ----- E/e', lat [place], 11 Peak E/A ratio 1.7 --- -- TDI MVA, PHT 2.5 cm^2 ----- E', med [place], TDI 8.8 cm/sec >=7.0 ERO, PISA 0.06 cm^2 ----- E/e', med [place], 12 MR vol, PISA 12 ml --- -- TDI E', avg, TDI 9.2 cm/sec Pulmonic valve Value Ref E/e', avg, TDI 12 <=14 Peak v, S 0.78 m/sec ----- Peak grad, S 2.0 mm Hg ----- LVOT Value Ref Peak derrick, S 1.4 m/sec Tricuspid valve Value Ref Peak grad, S 8 mm Hg TR peak v 2.7 m/sec <=2.8 Mean grad, S 3 mm Hg Peak RV-RA grad, S 29 mm Hg ----- Ventricular septum Value Ref Aortic root Value Ref IVS, ED 0.9 cm 0.6 - 0.9 Root diam 2.8 cm <3.9 Root max diam, ED 2.8 cm <3.9 Right ventricle Value Ref PRISCA, LAX 2.8 cm Ascending aorta Value Ref PRISCA minor ax, A4C 2.3 cm 1.9 - 3.5 AAo AP diam, S 3.3 cm ----- mid AAo AP diam/bsa, S 2.0 cm/m^2 ----- Pressure, S 32 mm Hg Aortic arch Value Ref Left atrium Value Ref Arch diam 2.6 cm ----- AP dim, ES (H) 4.10 cm 2.70 - 3.80 Decending aorta Value Ref ML dim, A4C 4.2 cm Elvie peak derrick 0.6 m/sec ----- SI dim, A4C 5.5 cm Vol/bsa, ES, A/L 34 ml/m^2 16 - 34 Pulmonary artery Value Ref Pressure, S 30.0 mm Hg ----- Right atrium Value Ref SI dim, ES 5.0 cm 3.4 - 5.3 Inferior vena cava Value Ref ML dim, ES, A4C 3.4 cm 2.6 - 4.4 Diam 2.0 cm ----- Estimated RAP 3 mm Hg Pulmonary veins Value Ref Aortic valve Value Ref Peak v, S 0.5 m/sec ----- [place] diam, ED 1.9 cm Peak v, D 0.5 m/sec ----- Peak v, S 1.48 m/sec Peak S/D ratio 1 ----- VTI, S 32.7 cm A rev duration 95 ms ----- Mean grad, S 4.0 mm Hg Peak grad, S 9.0 mm Hg Mitral valve Value Ref Peak E 1.06 m/sec Legend: (L) and (H) richard values outside specified reference range. Prepared and electronically signed by Sonia Polanco MD 04/27/2019 14:46
[2019-04-27] MEDS ORDERED: Rivaroxaban TAB(*) 20 MG TAB PO SCH (18:00)
--- NOTE | 2019-04-27 21:38 | DS ---
CC: Dr. Becky Rolle.* DISCHARGE SUMMARY: DATE OF ADMISSION: 04/26/19. DATE OF DISCHARGE: 04/27/19. PRIMARY CARE PHYSICIAN: Dr. Becky Rolle. PRIMARY DIAGNOSIS: Atrial fibrillation with RVR. SECONDARY DIAGNOSES: Hypertension. DISCHARGE MEDICATIONS: 1. Xarelto 20 mg daily with evening meal. 2. Lisinopril 5 mg daily. 3. Omeprazole 20 mg daily. HISTORY OF PRESENT ILLNESS: Ms. Almonte is a 73-year-old woman with hypertension, who is presenting to the emergency room after an episode of lightheadedness, EMT noted that she had hypotension and atrial fibrillation with RVR. Her daughter spent most of the day with her on the day of presentation, thought that she was in her usual state of health before sudden onset of lightheadedness. The patient does not have a history of heart disease. The family notes that the patient lives in a [place] community and the housing there has recently became infested with flees and the patient may have had exposure recently to extermination chemicals. Other than that, she has had no recent changes to health. HOSPITAL COURSE: In the emergency room, the patient was placed on a Cardizem drip and admitted to the ICU. Her TSH was normal. Her troponin increased slightly on third lab draw to 0.03 which was thought to be demand in the setting of significant tachycardia. After a couple hours on this drip, the patient spontaneously converted to normal sinus rhythm. As her blood pressures were soft and her heart rate was in the 60s, she was not started on rate control rhythm while in normal sinus rhythm. The patient remained asymptomatic in the ICU and was transferred to the internal medicine floors on telemetry. By the next morning, the patient still was asymptotic. A discussion was had with the patient given risks and benefits of anticoagulation given BLAYNE-VASC score of 3. The patient was amenable to starting anticoagulant and educated on risks. She also underwent a transthoracic echocardiogram which showed normal LV function with EF 55% to 60%, LA at upper limites of normal size, with RV systolic function normal, mitral valve appears to be calcified with mild to moderate regurgitation. A social work consult was placed and an APS case was opened to investigate the patient's main concern which was a history of flees and extermination in her apartment in her [place]plus community housing. PERTINENT DIAGNOSTIC STUDIES: CBC initially with leukocytosis to 11, which resolved without intervention. Platelets decreased mildly to 146 with unknown baseline. BMP notable for hypokalemia on presentation which resolved after repletion. Trop increased to 0.03. LDL 106, HDL 58, total cholesterol 175 with triglycerides 55. TSH 2.37. LFTs are unremarkable. Transthoracic echocardiogram with LV systolic function normal with EF 55% to 60% , RV systolic function normal, LA at upper limits of normal size. Mitral valve annulus appears calcified with leaflets mildly thickened with mild to moderate regurgitation, aortic valve with trace regurgitation, tricuspid valve with trace to mild regurgitation. PASP within normal range. DISCHARGE PLAN: The patient will be discharged to follow up with her primary care physician. The only change to her home medications was the addition of rivaroxaban and she was educated to take 20 mg with dinner daily. She can continue having ongoing risk and benefit discussion with her outpatient PCP. For her possible infestation in senior citizen housing, adoption social worker was contacted that opened the case with outpatient services. The patient was given written precautions which include, but are not limited new evidence of bleeding or recurrence of lightheadedness, palpitations, chest pain. DIET: Healthy diet, low in processed food. ACTIVITY: As tolerated. DISPOSITION: Home. CONDITION: Good. TIME SPENT: Approximately 60 minutes was spent on the discharge of this patient , more than half of which was spent with care coordination at bedside for interview and exam. [id number]/CPS #: [id number] MTDD
== END 2019-04-27 14:47 | disposition home or self-care (01) | DRG 201 ==
LOC: ED 21:00 → ICU 04-26 00:02 → MEDTELE 04-26 12:41
PROVIDERS: ADMIT Student in an Organized Health Care Education/Training Program; ATTEND Internal Medicine
DX: I48.91 Unspecified atrial fibrillation (principal); I24.8 Other forms of acute ischemic heart disease; I10 Essential (primary) hypertension; M19.90 Unspecified osteoarthritis, unspecified site; E87.6 Hypokalemia; I08.3 Combined rheumatic disorders of mitral, aortic and tricuspid valves; R00.1 Bradycardia, unspecified; Z88.6 Allergy status to analgesic agent; Z88.4 Allergy status to anesthetic agent; Z79.01 Long term (current) use of anticoagulants
CPT/HCPCS: 36415; 80048; 80053; 80061; 83735; 84443; 84484; 85025; 85027; 85610; 87641; 90686; 90732; 93005; 93306; 96374; 96375; 99284; A9270-GY; J3480